=== PATIENT | male | born 1995 | race Caucasian/White ===

== ENCOUNTER 2016-07-13 03:26 | Emergency (ER) | payer BC ==
[~2016-07-13] VITALS: Ht 188 cm; Wt 78.5 kg
[2016-07-13] MEDS ORDERED: XANAX 0.5 MG0.5 MG PO (03:33)
[2016-07-13 03:53] LABS: AMP/METHAMP Negative (Negative); BARBITURATES Negative (Negative); BENZODIAZEPINES Negative (Negative); COCAINE Negative (Negative); METHADONE Negative (Negative); OPIATES Negative (Negative); PCP Negative (Negative); THC POSITIVE (Negative)
[2016-07-13 04:46] VITALS: BP 111/58
== END 2016-07-13 04:47 | disposition home or self-care (01) ==
LOC: ER 03:26
PROVIDERS: Emergency Medicine
DX: F12.10 Cannabis abuse, uncomplicated (principal); F41.9 Anxiety disorder, unspecified; F19.10 Other psychoactive substance abuse, uncomplicated